=== PATIENT | male | born 1975 | race African-American/Black ===

== ENCOUNTER 2022-03-26 21:13 | Inpatient (IN) | payer MEDICAID ==
[~2022-03-26] VITALS: Ht 182.2 cm; Wt 175.0 kg
[2022-03-26] MEDS ORDERED: naloxone 2mg/2ml inj ONE (21:19)
[2022-03-26] MEDS ORDERED: ondansetron/PF 4mg/2ml inj IV ONE (21:20)
--- NOTE | 2022-03-26 21:42 | NUR ---
Pt is now alert able to answer questions.
[2022-03-26 21:44] LABS: ALANINE AMINOTRANSFERASE 29 U/L (12-78); ALBUMIN 3.9 G/DL (3.4-5.0); ALBUMIN/GLOBULIN RATIO 0.9 (1.1-1.5); ALKALINE PHOSPHATASE 73 IU/L (46-116); ANION GAP 11 (8-16); ASPARTATE AMINO TRANSFERASE 26 U/L (10-37); BILIRUBIN,TOTAL 0.3 MG/DL (0.1-1.0); BLOOD UREA NITROGEN 21 MG/DL (7-18); BUN/CREATININE RATIO 9.2 (5.4-32.0); CHLORIDE 106 MMOL/L (99-107); CREATININE 2.28 MG/DL (0.60-1.10); GLUCOSE 305 MG/DL (70-104); POTASSIUM 4.5 MMOL/L (3.5-5.1); SODIUM 144 MMOL/L (135-145); TOTAL CARBON DIOXIDE 27.2 MMOL/L (24-32); TOTAL PROTEIN 8.4 G/DL (6.4-8.2); eGFR 31 ML/MIN
[2022-03-26 21:47] LABS: BASOPHILS % (AUTO) 0.2 % (0-1); CREATINE KINASE 566 U/L (39-308); EOSINOPHILS % (AUTO) 0 % (0-6); HEMATOCRIT 45.2 % (42.0-52.0); HEMOGLOBIN 14.6 g/dl (14.0-17.9); LYMPHOCYTES # (AUTO) 0.8 X10'3 (1.1-4.8); MEAN CORPUSCULAR HEMOGLOBIN 30.2 PG (27.0-31.0); MEAN CORPUSCULAR HGB CONC 32.3 g/dL (33.0-36.5); MEAN CORPUSCULAR VOLUME 93.3 FL (78-98); MEAN PLATELET VOLUME 7.5 FL (7.4-10.4); MONOCYTES # (AUTO) 0.8 X10'3 (0-0.9); NEUTROPHILS # (AUTO) 18.5 X10'3 (1.8-7.7); NEUTROPHILS % (AUTO) 91.8 % (42-75); PLATELET COUNT 291 X10'3 (140-440); RED BLOOD COUNT 4.84 X10'6 (4.70-6.10); RED CELL DISTRIBUTION WIDTH 13.6 % (11.5-14.5); WHITE BLOOD COUNT 20.2 X10'3 (4.5-11.0)
[2022-03-26 21:49] LABS: CLARITY,URINE CLEAR (Clear); GLUCOSE, URINE NEGATIVE (Neg); KETONES,URINE NEGATIVE (Neg); LEUKOCYTE ESTERASE ,URINE NEGATIVE (Neg); NITRITES, URINE NEGATIVE (Neg); OCCULT BLOOD,URINE SMALL (Neg); PH,URINE 5.5 (4.8-8.0); PROTEIN,URINE 100 mg/dl (Neg); UROBILINOGEN,URINE 0.2 E.U/dL (0.2-1.0)
[2022-03-26 21:50] LABS: COLOR,URINE AMBER (Yellow); UA COLLECTION TYPE STRAIGHT CATH
--- NOTE | 2022-03-26 21:56 | NUR ---
Pt is back from ct and is awake talking. Pt ia breathing freely with no issues at this time
[2022-03-26 21:57] LABS: MUCUS STRANDS MANY /LPF (Neg)
[2022-03-26 21:59] LABS: BACTERIA,URINE NONE SEEN /HPF (Neg); SQUAMOUS EPITHELIAL CELL,UR FEW /LPF (FEW); WBC,URINE 0-4 /HPF (0-4)
[2022-03-26 22:01] LABS: URINE AMPHETAMINE SCREEN POSITIVE (Neg); URINE BARBITUATE SCREEN NEGATIVE (Neg); URINE BENZODIAZEPINES SCREEN NEGATIVE (Neg); URINE CANNABINOID SCREEN POSITIVE (Neg); URINE COCAINE SCREEN NEGATIVE (Neg); URINE METHADONE SCREEN NEGATIVE (Neg); URINE OPIATE SCREEN NEGATIVE (Neg); URINE PHENCYCLIDINE SCREEN NEGATIVE (Neg)
[2022-03-26 22:01] LABS: ETHANOL < 0.010 GM/DL (0.0-0.010)
[2022-03-26] MEDS ORDERED: normal saline 1000ML IV soln IVB ONE (22:10)
--- NOTE | 2022-03-27 01:19 | NUR ---
pt not able to walk on his own at this time. Pt was unable to stay up long enough to stand
--- NOTE | 2022-03-27 01:53 | NUR ---
Pt still not awake enough to have get up to walk safely
[2022-03-27] MEDS ORDERED: NALO4SPR BOTHNARES (02:19)
--- NOTE | 2022-03-27 02:41 | NUR ---
Pt not arousable to walk for discharge
--- NOTE | 2022-03-27 04:17 | NUR ---
Pt was moved to hallway and is still not awake enough to walk. Pt will not stay awake.
[2022-03-27] MEDS ORDERED: naloxone 2mg/2ml inj IV STA (04:33)
--- NOTE | 2022-03-27 04:48 | NUR ---
Pt awake after narcan dose given. Pt given warm blankets and a urinal
--- NOTE | 2022-03-27 04:49 | NUR ---
Pt states he had taken an unknown blue pill earlier today
[2022-03-27] MEDS ORDERED: POTASSIUM BICARB 20meq eff tab 20 MEQ TABLET.EFF PO PRN ×2 (05:05)
[2022-03-27] MEDS ORDERED: magnesium Cl slow-release 64mg tablet PO PRN (05:05)
[2022-03-27] MEDS ORDERED: potassium CL 10mEq/100ml bag 100 ML IV PRN (05:05)
[2022-03-27] MEDS ORDERED: magnesium 4gm in 100ml NS 100 ML IV PRN (05:05)
[2022-03-27] MEDS ORDERED: magnesium 2GM in 50ml NS 50 ML IV PRN (05:05)
[2022-03-27] MEDS ORDERED: acetaminophen 325mg tablet PO PRN (05:05)
[2022-03-27] MEDS ORDERED: dextrose 50%-water 50ml dispensing syringe IV PRN ×2 (05:25)
[2022-03-27] MEDS ORDERED: MESSAGE TO PHARMACY PO ONE (05:25)
[2022-03-27] MEDS ORDERED: insulin Lispro (HumaLOG) vial - multi-dose SQ SCH (05:25)
[2022-03-27] MEDS ORDERED: glucagon, human recombinant 1mg kit SUBCUT PRN (05:25)
[2022-03-27] MEDS: normal saline 1000ml 1,000 ML IV SCH ×2 (05:25→16:01)
[2022-03-27] MEDS ORDERED: DEXTROSE 15 GM of carb/4 tabs (each vial/BOTTLE has 4 tablets) PO PRN ×2 (05:25)
--- NOTE | 2022-03-27 06:02 | NUR ---
Pt is alert and keeps asking for water was advised he is NPO at this time
[2022-03-27 06:17] LABS: MAGNESIUM 2.5 MG/DL (1.5-2.4); POTASSIUM 4.7 MMOL/L (3.5-5.1)
--- NOTE | 2022-03-27 06:35 | NUR ---
TROPONIN LEVEL 120. NO CHANGE FROM PREVIOUS TROPONIN LEVEL.
--- NOTE | 2022-03-27 06:49 | NUR ---
UPON ENTERING PT ROOM I NOTICED HIS RESP RATE ON MONITOR READING 5. MY PHYSICAL ASSESSMENT VERIFIED THIS READING. PT WAS EASY TO ROUSE HOWEVER DOZED OFF TO SLEEP WHILE TALKING TO ME. I WOKE THE PT UP AGAIN AND TOLD HIM IM GOING TO ADMINISTER NARCAN. PT SAT UP AND TOLD ME HE WILL STAY AWAKE AND THATHE DOES NOT NEED THE NARCAN. I EDUCATED PT ON THE AFFECTS DRUGS CAN HAVE ON DRIVE TO BREATHE. PT VERBALIZED UNDERSTANDING. PT ATTEMPTING TO STAY AWAKE AND IS CURRENTLY TALKING TO ME. I WILL REMAIN AT BEDSIDE WITH NARCAN AND WILL ADMINISTER IF HIS RESP DROP BELOW 8 .
--- NOTE | 2022-03-27 06:56 | NUR ---
PT IS UNABLE TO STAY AWAKE. PT RESP RATE DECLINES IMMEDIATLY ONCE HE FALLS ASLEEP. WAKES TO VOICE.
[2022-03-27] MEDS: K and/or MAG REPLACEMENT MC SCH ×2 (07:01→19:25)
[2022-03-27] MEDS: naloxone 0.4 mg/ml inj IV PRN ×3 (07:07→09:33)
[2022-03-27] MEDS: heparin, porcine 5000 units/ml vial SQ SCH ×2 (08:00→21:30)
--- NOTE | 2022-03-27 08:15 | NUR ---
PT RESPIRATIONS 5, PT EASY TO ROUSE BUT CONT TO DROP HIS RESP RATE WHEN HE FALLS ASLEEP. NARCAN DOSE GIVE. ECHO BEING PERFORMED AT BEDSIDE.
[2022-03-27 08:42] LABS: BASOPHILS % (AUTO) 0.2 % (0-1); EOSINOPHILS % (AUTO) 0.2 % (0-6); HEMATOCRIT 45.2 % (42.0-52.0); HEMOGLOBIN 14.7 g/dl (14.0-17.9); LYMPHOCYTES # (AUTO) 1.1 X10'3 (1.1-4.8); LYMPHOCYTES % (AUTO) 9.7 % (21-51); MEAN CORPUSCULAR HEMOGLOBIN 30.2 PG (27.0-31.0); MEAN CORPUSCULAR HGB CONC 32.5 g/dL (33.0-36.5); MEAN CORPUSCULAR VOLUME 92.9 FL (78-98); MEAN PLATELET VOLUME 7.3 FL (7.4-10.4); MONOCYTES # (AUTO) 0.6 X10'3 (0-0.9); MONOCYTES % (AUTO) 5.4 % (2-12); NEUTROPHILS # (AUTO) 9.4 X10'3 (1.8-7.7); NEUTROPHILS % (AUTO) 84.5 % (42-75); PLATELET COUNT 228 X10'3 (140-440); RED BLOOD COUNT 4.87 X10'6 (4.70-6.10); RED CELL DISTRIBUTION WIDTH 14.2 % (11.5-14.5); WHITE BLOOD COUNT 11.1 X10'3 (4.5-11.0)
[2022-03-27 08:56] LABS: ALBUMIN 3.7 G/DL (3.4-5.0); ANION GAP 10 (8-16); BLOOD UREA NITROGEN 17 MG/DL (7-18); CALCIUM 8.7 MG/DL (8.5-10.1); CHLORIDE 109 MMOL/L (99-107); CREATININE 1.21 MG/DL (0.60-1.10); GLUCOSE 79 MG/DL (70-104); POTASSIUM 4.4 MMOL/L (3.5-5.1); SODIUM 146 MMOL/L (135-145); eGFR 78 ML/MIN
[2022-03-27] MEDS ORDERED: naloxone 2mg/2ml inj 2 MG in normal saline 500ml IV soln 498 ML IV SCH (09:25)
[2022-03-27] MEDS: ondansetron/PF 4mg/2ml inj IV PRN (09:32)
[2022-03-27 13:07] VITALS: BP 112/74
[2022-03-27 15:00] VITALS: BP 122/85
--- NOTE | 2022-03-27 17:23 | NUR ---
Blood sugar 64, given 4 glucose tabs, apple and OJuice.
[2022-03-27 18:00] VITALS: BP 134/85
--- NOTE | 2022-03-27 18:03 | NUR ---
Patient only took 2 glucose tabs earlier, eating supper. Blood sugar at 1800 102.
--- NOTE | 2022-03-27 18:13 | NUR ---
Problems reprioritized. Patient report given, questions answered & plan of care reviewed with Anabella Kyle.
--- NOTE | 2022-03-27 18:33 | NUR ---
Problems reprioritized. Patient report given, questions answered & plan of care reviewed with Neha BROCK.
--- NOTE | 2022-03-27 18:35 | NUR ---
[place] documentation: I have reviewedall interventions, assessments performed and documented by Lea BROCK.
--- NOTE | 2022-03-27 18:36 | NUR ---
[place] Administration: For this medication-pass time frame, all medication were reviewed, dispensed, administered and documented per hospital policy by Lea BROCK.
[2022-03-27] MEDS: insulin glargine (Lantus) pen - multi-dose SQ SCH (21:00)
[2022-03-27 22:00] VITALS: BP 108/81
[2022-03-27] MEDS ORDERED: NORMAL SALINE IV SCH (22:35)
[2022-03-27] MEDS ORDERED: NALOXONE IV SCH (22:35)
[2022-03-28] MEDS: ondansetron/PF 4mg/2ml inj IV PRN (01:22)
[2022-03-28] MEDS: normal saline 1000ml 1,000 ML IV SCH ×3 (01:22→21:05)
--- NOTE | 2022-03-28 01:42 | NUR ---
pt fever 101. gave tylenol 650 mg prn.
[2022-03-28 02:00] VITALS: BP 126/83
[2022-03-28 06:00] VITALS: BP 126/87
--- NOTE | 2022-03-28 06:41 | NUR ---
Patient in room PCU 3026. I have received report from Silva BROCK and had the opportunity to ask questions and assume patient care.
[2022-03-28 07:07] LABS: ALANINE AMINOTRANSFERASE 21 U/L (12-78); ALBUMIN 2.8 G/DL (3.4-5.0); ALBUMIN/GLOBULIN RATIO 0.7 (1.1-1.5); ALKALINE PHOSPHATASE 63 IU/L (46-116); ANION GAP 10 (8-16); ASPARTATE AMINO TRANSFERASE 34 U/L (10-37); BILIRUBIN,TOTAL 0.7 MG/DL (0.1-1.0); BLOOD UREA NITROGEN 15 MG/DL (7-18); BUN/CREATININE RATIO 13.9 (5.4-32.0); CALCIUM 7.9 MG/DL (8.5-10.1); CHLORIDE 106 MMOL/L (99-107); CREATININE 1.08 MG/DL (0.60-1.10); GLUCOSE 75 MG/DL (70-104); POTASSIUM 4.1 MMOL/L (3.5-5.1); SODIUM 139 MMOL/L (135-145); TOTAL CARBON DIOXIDE 23.1 MMOL/L (24-32); TOTAL PROTEIN 6.9 G/DL (6.4-8.2); eGFR 89 ML/MIN
[2022-03-28] MEDS: heparin, porcine 5000 units/ml vial SQ SCH ×2 (07:41→21:06)
[2022-03-28] MEDS: K and/or MAG REPLACEMENT MC SCH ×2 (08:00→20:00)
[2022-03-28 09:06] LABS: BASOPHILS % (AUTO) 0.2 % (0-1); EOSINOPHILS # (AUTO) 0.2 X10'3 (0-0.9); EOSINOPHILS % (AUTO) 2.2 % (0-6); HEMATOCRIT 46.3 % (42.0-52.0); HEMOGLOBIN 15.2 g/dl (14.0-17.9); LYMPHOCYTES # (AUTO) 0.8 X10'3 (1.1-4.8); LYMPHOCYTES % (AUTO) 11.3 % (21-51); MEAN CORPUSCULAR HEMOGLOBIN 30.6 PG (27.0-31.0); MEAN CORPUSCULAR HGB CONC 32.9 g/dL (33.0-36.5); MEAN CORPUSCULAR VOLUME 93.2 FL (78-98); MEAN PLATELET VOLUME 7.3 FL (7.4-10.4); MONOCYTES # (AUTO) 0.7 X10'3 (0-0.9); MONOCYTES % (AUTO) 10.3 % (2-12); NEUTROPHILS # (AUTO) 5.3 X10'3 (1.8-7.7); PLATELET COUNT 184 X10'3 (140-440); RED BLOOD COUNT 4.97 X10'6 (4.70-6.10); RED CELL DISTRIBUTION WIDTH 13.6 % (11.5-14.5)
[2022-03-28 11:00] VITALS: BP 130/85
[2022-03-28 15:00] VITALS: BP 129/84
--- NOTE | 2022-03-28 18:27 | NUR ---
Problems reprioritized. Patient report given, questions answered & plan of care reviewed with Neha BROCK.
[2022-03-28] MEDS: insulin glargine (Lantus) pen - multi-dose SQ SCH (21:00)
--- NOTE | 2022-03-28 21:57 | NUR ---
paged dr sandoval at [phone] regarding patient HR being in the 170s.
[2022-03-28 22:00] VITALS: BP 136/90
[2022-03-29 02:00] VITALS: BP 137/91
--- NOTE | 2022-03-29 04:30 | NUR ---
Pt had 2 episodes of diarrhea. No complaints of pain or discomfort. No acute distress noted. Will continue to monitor the patient.
[2022-03-29 06:00] VITALS: BP 129/87
--- NOTE | 2022-03-29 06:11 | NUR ---
Patient in room PCU 3026. I have received report from Silva BROCK and had the opportunity to ask questions and assume patient care.
[2022-03-29 07:57] LABS: BASOPHILS % (AUTO) 0.3 % (0-1); EOSINOPHILS # (AUTO) 0.2 X10'3 (0-0.9); EOSINOPHILS % (AUTO) 3.3 % (0-6); HEMATOCRIT 42.2 % (42.0-52.0); HEMOGLOBIN 14.3 g/dl (14.0-17.9); LYMPHOCYTES # (AUTO) 1.6 X10'3 (1.1-4.8); LYMPHOCYTES % (AUTO) 24.3 % (21-51); MEAN CORPUSCULAR HEMOGLOBIN 30.6 PG (27.0-31.0); MEAN CORPUSCULAR HGB CONC 33.8 g/dL (33.0-36.5); MEAN CORPUSCULAR VOLUME 90.5 FL (78-98); MEAN PLATELET VOLUME 7.6 FL (7.4-10.4); MONOCYTES # (AUTO) 0.9 X10'3 (0-0.9); MONOCYTES % (AUTO) 12.8 % (2-12); NEUTROPHILS # (AUTO) 3.9 X10'3 (1.8-7.7); NEUTROPHILS % (AUTO) 59.3 % (42-75); PLATELET COUNT 205 X10'3 (140-440); RED BLOOD COUNT 4.66 X10'6 (4.70-6.10); RED CELL DISTRIBUTION WIDTH 13.3 % (11.5-14.5); WHITE BLOOD COUNT 6.6 X10'3 (4.5-11.0)
[2022-03-29 08:07] LABS: ALANINE AMINOTRANSFERASE 20 U/L (12-78); ALBUMIN 2.6 G/DL (3.4-5.0); ALBUMIN/GLOBULIN RATIO 0.7 (1.1-1.5); ALKALINE PHOSPHATASE 62 IU/L (46-116); ANION GAP 9 (8-16); ASPARTATE AMINO TRANSFERASE 23 U/L (10-37); BILIRUBIN,TOTAL 0.7 MG/DL (0.1-1.0); BLOOD UREA NITROGEN 8 MG/DL (7-18); BUN/CREATININE RATIO 8.3 (5.4-32.0); CALCIUM 8.1 MG/DL (8.5-10.1); CHLORIDE 108 MMOL/L (99-107); CREATININE 0.96 MG/DL (0.60-1.10); GLUCOSE 87 MG/DL (70-104); POTASSIUM 3.2 MMOL/L (3.5-5.1); SODIUM 144 MMOL/L (135-145); TOTAL CARBON DIOXIDE 27.4 MMOL/L (24-32); TOTAL PROTEIN 6.6 G/DL (6.4-8.2); eGFR > 90 ML/MIN
[2022-03-29] MEDS: heparin, porcine 5000 units/ml vial SQ SCH (10:04)
[2022-03-29 11:00] VITALS: BP 125/84
--- NOTE | 2022-03-29 14:11 | NUR ---
Patient stable for discharge per Dr. Hawkins orders. All discharge instructions reviewed with patient and all questions answered. Pt verbalized understanding. New prescription of narcan was prescribed. PIV discontinued cannula intact. Tele discontinued. All belongings collected and sent with patient. Wheeled to lobby via nursing staff and picked up by friend.
== END 2022-03-29 13:02 | disposition home or self-care (01) | DRG 812 ==
LOC: EDBD 21:15 → ER 21:15 → ED HOLD 03-27 05:13 → PCU 3S 03-27 12:48
PROVIDERS: ADMIT Internal Medicine; ATTEND Internal Medicine
DX: T40.2X1A Poisoning by other opioids, accidental (unintentional), initial encounter (principal); G92.9 Unspecified toxic encephalopathy; N17.9 Acute kidney failure, unspecified; M62.82 Rhabdomyolysis; E86.0 Dehydration; F12.90 Cannabis use, unspecified, uncomplicated; F17.210 Nicotine dependence, cigarettes, uncomplicated; E16.2 Hypoglycemia, unspecified; Y92.89 Other specified places as the place of occurrence of the external cause; Z88.8 Allergy status to other drugs, medicaments and biological substances
CPT/HCPCS: 36415; 70450; 71045; 80048; 80053; 80305; 80320; 81001; 82550; 82948; 83036; 83735; 84132; 84145; 84484; 85025; 87081; 93306; 96361; 96374; 96375; 99285; A4615; C1758; G0378; J1644; J1815; J2310; J2405; J7030; J7040